=== PATIENT | male | born 1970 | race Caucasian/White ===

== ENCOUNTER 2025-06-26 17:33 | Emergency (ER) | payer OTHER, SELFPAY ==
[2025-06-26 17:40] VITALS: BP 141/87; PULSE 94; TEMP 36.5; O2SAT 96; BMI 31.7
--- NOTE | 2025-06-26 17:52 | XR_ITS ---
The [address] [address] Patient Name: ADELIA CHO MRN: [id number] date: 1970 Sex: M Assigned Patient Location: ED.MAIN Current Patient Location: ED.MAIN Accession/Order Number: [id number] Exam Date: 06/26/2025 18:20 Report Date: 06/26/2025 18:56 At the request of: TIM GASPAR MD Procedure: XR lumbar spine 2-3V 2 views of the lumbar spine INDICATION: Pain COMPARISON: None FINDINGS: Lumbar vertebral heights and intervertebral space heights are grossly preserved with mild disc space narrowing at L5-S1. Mild facet arthropathy L4-S1. No fracture or malalignment identified. No definite radiopaque calcifications overlying the renal shadows. [id number] stool burden. XR/XR lumbar spine 2-3V IMPRESSION: Mild degenerative changes lower lumbar spine. Negative acute osseous abnormality. Impression dictated by: Bartolo Morrow M.D. 06/26/2025 6:56 PM Dictation Location: [place] [address] Electronically authenticated by: [id number] Y Date: 06/26/2025 18:56
--- NOTE | 2025-06-26 17:58 | ED.GENADUL1 ---
HPI HPI - General Adult General Chief complaint: Back Pain/Injury Stated complaint: FELL AND TWISTED LOWER BACK Time Seen by Provider: 06/26/25 17:49 Source: patient Mode of arrival: walk-in History of Present Illness HPI narrative: 55-year-old male presented to the emergency department for lower back pain. He tripped and twisted his back. He did not land on his back. No weakness or numbness. The pain is bilateral and worse in certain positions. This occurred today. Related Data Home Medications ?Medication ?Instructions ?Recorded ?Confirmed escitalopram oxalate 10 mg tablet 10 mg PO DAILY 06/26/25 06/26/25 (Lexapro) losartan 25 mg tablet (Cozaar) 25 mg PO DAILY 06/26/25 06/26/25 Previous Rx's ?Medication ?Instructions ?Recorded ibuprofen 800 mg tablet 800 mg PO Q8H PRN pain #20 tabs 06/26/25 methocarbamol 750 mg tablet 750 mg PO Q8H #20 tabs 06/26/25 Allergies Allergy/AdvReac Type Severity Reaction Status Date / Time No Known Drug Allergies Allergy Verified 06/26/25 17:39 Opioid HPI Opioid Management Most Recent Opioid Data: Last Pain Scale 5 Today, 17:40 Review of Systems ROS Narrative A ten point review of systems is negative except as noted above. PFSH PFSH Social History Little interest or pleasure in doing things: not at all Feeling down, depressed, or hopeless: not at all Exam Narrative Exam Narrative: Nurses note and vital signs reviewed General:The patient appears well and in no apparent distress.Patient is standing in the room Skin:Warm, dry, no pallor noted.There is no rash noted. Head:Normocephalic, atraumatic Eye: Normal conjunctiva, no drainage Ears, Nose, Mouth, and Throat: oral mucosa is moist. Nares patent. Cardiovascular:Regular Rate and Rhythm Respiratory:Patient is in no distress, no accessory muscle use, lungs are clear to auscultation, no wheezing, rales or rhonchi Back: No bruise or abrasion. He does not have any focal area of tenderness to palpation GI: Nontender Musculoskeletal: Strength intact in his lower extremities Neurological:A&O, normal speech Psychiatric:Cooperative Constitutional Vital Signs, click to edit/add: Last Vital Signs Temp 97.7 F 06/26/25 17:40 Pulse 94 H 06/26/25 17:40 Resp 18 06/26/25 17:40 BP 141/87 06/26/25 17:40 Pulse Ox 96 06/26/25 17:40 O2 Del Method Room Air 06/26/25 17:40 Course Vital Signs Vital signs: Vital Signs Temperature 97.7 F 06/26/25 17:40 Pulse Rate 94 H 06/26/25 17:40 Respiratory Rate 18 06/26/25 17:40 Blood Pressure 141/87 06/26/25 17:40 Pulse Oximetry 96 06/26/25 17:40 Oxygen Delivery Method Room Air 06/26/25 17:40 Temperature 97.7 F 06/26/25 17:40 Pulse Rate 94 H 06/26/25 17:40 Respiratory Rate 18 06/26/25 17:40 Blood Pressure 141/87 06/26/25 17:40 Pulse Oximetry 96 06/26/25 17:40 Oxygen Delivery Method Room Air 06/26/25 17:40 Medical Decision Making MDM Narrative Medical decision making narrative: X-rays on my interpretation showed no acute findings. He is requesting no narcotics. He is a former addict. He was prescribed ibuprofen and Robaxin. Treatment diagnosis and follow-up were discussed with the patient. Differential Diagnosis Differential Diagnosis: Lumbar strain, lumbar fracture Imaging Data Lumbar x-rays: My impression: No acute findings Discharge Plan Discharge Chief Complaint: Back Pain/Injury Clinical Impression: Lumbar strain Patient Disposition: Home, Self-Care Time of Disposition Decision: 18:49 Condition: Good Mode of Transportation: Private Vehicle Prescriptions / Home Meds: New ibuprofen 800 mg tablet 800 mg PO Q8H PRN (Reason: pain) Qty: 20 0RF methocarbamol 750 mg tablet 750 mg PO Q8H Qty: 20 0RF No Action losartan [Cozaar] 25 mg tablet 25 mg PO DAILY escitalopram oxalate [Lexapro] 10 mg tablet 10 mg PO DAILY Print Language: Bangladeshi Instructions: Low Back Strain (ED) Referrals: YAZMIN MCCALL [Primary Care Provider, Family Practice] - 1 week
--- NOTE | 2025-06-26 19:04 | PC.NURSE ---
i walked into this patient's room to find this patient lying supine on the bed awake and alert, patient looking at his cell phone. I introduced myself to this patient and i informed him we are waiting on the x-ray results to come back. this patient voices no other concerns, needs and shows no signs of distress
== END 2025-06-26 19:44 | disposition home or self-care (01) ==
PROVIDERS: Emergency Provider Emergency Medicine; PCP Family Medicine
DX: S39.012A Strain of muscle, fascia and tendon of lower back, initial encounter (principal); W01.0XXA Fall on same level from slipping, tripping and stumbling without subsequent striking against object, initial encounter; X50.1XXA Overexertion from prolonged static or awkward postures, initial encounter
CPT/HCPCS: 72100; 99283